=== PATIENT | female | born 1980 | race American Indian/Alaskan Native ===

== ENCOUNTER 2018-08-26 12:49 | Emergency (ER) | payer MEDICAID ==
--- NOTE | 2018-08-26 14:29 | ED PDOC ---
HPI: Psych/Substance Abuse Time Seen by Provider: 08/26/18 13:58 Chief Complaint (Nursing): Psychiatric Evaluation Chief Complaint (Provider): Psychiatric Evaluation History Per: Patient History/Exam Limitations: no limitations Current Symptoms Are (Timing): Still Present Additional Complaint(s): 37 y/o female, with a history of depression, bipolar disorder, schizophrenia, and anxiety, presents to the ER for a psychiatric evaluation. Patient states this has been going on for about 10 years for which she routinely sees a psychiatrist and therapist. Last January, she lost her son and states she is on the verge of getting evicted from her home. She states she is also not routinely taking medications as directed as she is unable to keep up with them. Patient reports she had an appointment today with her psychiatrist where she expressed thoughts of suicidal ideation and plan to cut her wrist. The psychiatrist called EMS who brought her to the ER. Patient denies suicidal attempt or homicidal ideation. She states she feel increased irritability. Denies any physical complaints except for cramps because she thinks her menstrual period is due to come. PMD: none provided Past Medical History Reviewed: Historical Data, Nursing Documentation, Vital Signs Vital Signs: Last Vital Signs Temp 98.9 F 08/26/18 12:51 Pulse 92 H 08/26/18 12:51 Resp 16 08/26/18 12:51 BP 131/79 08/26/18 12:51 Pulse Ox 100 08/26/18 12:51 Primary Care Provider: FAMILY PROVIDER,NO - Medical History PMH: Anxiety, Bipolar Disorder, Depression, Schizophrenia - Surgical History Surgical History: No Surg Hx - Family History Family History: States: Unknown Family Hx - Social History Alcohol: None Drugs: Cannabis, Other (Denies other recreational drugs) - Home Medications Home Medications: Ambulatory Orders Medication Instructions Recorded Alprazolam [Xanax] 0.5 mg PO DAILY 09/17/15 Ondansetron ODT [Zofran ODT] 1 odt PO BID PRN #10 odt 09/17/15 Sertraline [Zoloft] 100 mg PO HS 09/17/15 Famotidine [Pepcid] 20 mg PO DAILY #20 tab 09/18/15 - Allergies Allergies/Adverse Reactions: Allergies Allergy/AdvReac Type Severity Reaction Status Date / Time No Known Allergies Allergy Verified 09/18/15 12:29 Review of Systems ROS Statement: Except As Marked, All Systems Reviewed And Found Negative Gastrointestinal: Positive for: Other (Cramps) Psych: Positive for: Suicidal ideation (and plan), Other ((+) irritability; (-) homicidal ideation) Physical Exam - Reviewed Nursing Documentation Reviewed: Yes Vital Signs Reviewed: Yes - Physical Exam Appears: Positive for: No Acute Distress Head Exam: Positive for: ATRAUMATIC, NORMOCEPHALIC Skin: Positive for: Normal Color, Warm, Dry Eye Exam: Positive for: Normal appearance Neck: Positive for: Normal, Painless ROM Cardiovascular/Chest: Positive for: Regular Rate, Rhythm Respiratory: Positive for: Normal Breath Sounds. Negative for: Wheezing, Resp iratory Distress Gastrointestinal/Abdominal: Positive for: Normal Exam, Soft. Negative for: Tenderness Extremity: Positive for: Normal ROM Neurological/Psych: Positive for: Awake, Alert, Normal Tone, Mood/Affect (mood: sad), Other (Cooperative and calm) - Laboratory Results Result Diagrams: 08/26/18 14:30 08/26/18 14:30 - ECG ECG Rhythm: Positive for: Sinus Rhythm Rate: 66 O2 Sat by Pulse Oximetry: 100 (RA) Pulse Ox Interpretation: Normal Medical Decision Making Medical Decision Making: Initial Impression: Psychiatric evaluation Initial Plan: --EKG --Acetaminophen stat --Alcohol serum stat --CMP --Urine drug screen --Salicylate stat --Crisis evaluation --Urin --CBC --Chest X-ray --Motrin 600mg PO --1:1 obesrvation --Urinalysis Medical clearance for possible admission to psych. 1:1 ordered for safety and patient referred to crisis. Motrin ordered for cramps. 15:18 Labs and chest x-ray reviewed by me which are unremarkable. Patient is medically cleared for psych admission pending psych disposition. 15:22 Patient admitted to psych with diagnosis of bipolar disorder under Dr. Leonardo. PATIENT IS MEDICALLY CLEARED. 19:00 Patient is irate requesting to be given Risperdol as she takes it at 6pm ev teodoro. Sandy hall worker notified of patient request. She will ask psychiatrist if patient is able to be medicated. Risperdol is not listed in medication record. 19:56: Patient calm in room. Pending Medical clearance from in [place]. Patient will be transferred to [facility] as there is no bed availability in this facility in adult psych. 20:30 Patient awake, irate, yelling that she wants to go home if not given Risperdal, hall worker spoke to Dr. Leonardo. authorized patient to be given Cogentin 1mg PO and Risperdal 2mg Po x1. Medications to be given by nursing. 21:30 Patient is calm in room, sleeping. Maintained on 1:1 for safety. Pending Bed assignment in [place] 00:30 patient taken by Vic Ortiz to [place]. Patient left in no respiratory distress, Calm and cooperative. Scribe Attestation: Documented by Raphael De Jesus acting as a scribe for Ronda Taylor NP. Provider Scribe Attestation: All medical record entries made by the Scribe were at my direction and pers onally dictated by me. I have reviewed the chart and agree that the record accurately reflects my personal performance of the history, physical exam, medical decision making, and the department course for this patient. I have also personally directed, reviewed, and agree with the discharge instructions and disposition. Disposition - Clinical Impression Clinical Impression: Bipolar 1 disorder - Patient ED Disposition Is Patient to be Admitted: Yes Doctor Will See Patient In The: Hospital Counseled Patient/Family Regarding: Diagnosis - Disposition Disposition: Other Institution Disposition Time: 15:22 Condition: STABLE - Pt Status Changed To: Hospital Disposition Of: Inpatient - Admit Certification Admit to Inpatient:: After my assessment, the patient will require ho spitalization for at least two midnights. This is because of the severity of symptoms shown, intensity of services needed, and/or the medical risk in this patient being treated as an outpatient. - POA Present On Arrival: None
[2018-08-26 14:49] LABS: BASO % 0.4 % (0.0-2.0); EOS # 0.1 K/uL (0.0-0.7); EOS % 1.1 % (0.0-4.0); HEMOGLOBIN 11.8 g/dL (12.0-16.0); LYMPH # 1.9 K/uL (1.0-4.3); LYMPH % 28.2 % (20.0-40.0); MEAN CELL VOLUME 84.8 fl (81.0-99.0); MEAN CORPUSCULAR HEMOGLOBIN 27.5 pg (27.0-31.0); MEAN CORPUSCULAR HGB CONC 32.4 g/dL (33.0-37.0); MEAN PLATELET VOLUME 8.9 fl (7.2-11.7); MONO # 0.4 K/uL (0.0-0.8); MONO % 6.3 % (0.0-10.0); NEUT # 4.2 K/uL (1.8-7.0); NRBC % 0.1 % (0.0-0.0); RBC 4.3 Mil/uL (3.80-5.20); WHITE BLOOD COUNT 6.6 K/uL (4.8-10.8)
[2018-08-26 14:50] LABS: SQUAMOUS EPITHIAL 1 /hpf (0-5); URINE BILIRUBIN NEGATIVE (NEGATIVE); URINE BLOOD MODERATE (NEGATIVE); URINE CLARITY CLEAR (Clear); URINE COLOR COLORLESS (YELLOW); URINE GLUCOSE (UA) NEG (NEGATIVE); URINE LEUKOCYTE ESTERASE NEG Leu/uL (Negative); URINE PROTEIN NEGATIVE (NEGATIVE); URINE UROBILINOGEN 0.2-1.0 mg/dL (0.2-1.0)
[2018-08-26 15:07] LABS: ALB/GLOB RATIO 1.5 (1.0-2.1); ALBUMIN 4.7 g/dL (3.5-5.0); ALT/SGPT 23 U/L (9-52); AST/SGOT 35 U/L (14-36); BLOOD UREA NITROGEN 12 mg/dl (7-17); CALCIUM 9.3 mg/dL (8.4-10.2); GFR NON-AFRICAN AMERICAN > 60
[2018-08-26 15:08] LABS: ACETAMINOPHEN < 10.0 ug/ml (10.0-30.0); SALICYLATE < 1.0 mg/dl
[2018-08-26 15:13] LABS: BARBITURATES, UR NEGATIVE (NEGATIVE); BENZODIAZEPINES, UR NEGATIVE (NEGATIVE); OPIATES, UR NEGATIVE (NEGATIVE); PHENCYCLIDINE, UR NEGATIVE (NEGATIVE)
--- NOTE | 2018-08-26 15:42 | RAD ---
Date of service: 08/26/2018 HISTORY: medical clearance COMPARISON: No prior. TECHNIQUE: Chest PA and lateral views FINDINGS: LUNGS: No active pulmonary disease. PLEURA: No significant pleural effusion identified. No pneumothorax apparent. CARDIOVASCULAR: No aortic atherosclerotic calcification present. Normal cardiac size. No pulmonary vascular congestion. OSSEOUS STRUCTURES: No significant abnormalities. VISUALIZED UPPER ABDOMEN: Normal. OTHER FINDINGS: None. IMPRESSION: No active disease.
[2018-08-26] MEDS ORDERED: Risperidone M tab 1 MG PO ONE ×2 (20:23→20:29)
[2018-08-26] MEDS ORDERED: Risperidone M tab 1 MG PO STA (20:33)
[2018-08-26 21:13] VITALS: RESP 18
[2018-08-26 23:11] VITALS: BP 118/70; TEMP 98
[2018-08-27 00:58] VITALS: PULSE 66; O2SAT 100
--- NOTE | 2018-08-27 11:53 | CARD ---
APPROVED REPORT Date of service: 08/26/2018 EKG Measurement Heart [id number] <Conclusion> Normal sinus rhythm with sinus arrhythmia Normal ECG
== END 2018-08-27 00:37 | disposition short-term general hospital (02) ==
LOC: H.ER 12:49 → H.ERHOLD 15:19 → UNDOADMIN 15:19 → UNDODISIN 08-27 00:37
DX: F31.9 Bipolar disorder, unspecified (principal); Z86.59 Personal history of other mental and behavioral disorders; Z00.8 Encounter for other general examination